=== PATIENT | male | born 1955 | race Caucasian/White ===

== ENCOUNTER → 2017-02-13 | Outpatient (CLI) | payer BC ==
[~2017-02-13] MED LIST: LISI-461 PO; LRT5 PO
[2017-02-13 12:26] LABS: BASO % 0.4 %; BASO ABS # 0.03 K/uL (0-0.2); COMPLETE YES; EOS % 2.1 %; HEMATOCRIT 40.4 % (42-52); IG% 0.1 %; LYMPH % 38.5 %; LYMPH ABS # 2.61 K/uL (1.2-3.4); MEAN CORPUSCULAR HEMOGLOBIN 28.7 pg (25-34); MEAN CORPUSCULAR HGB CONC 34.7 g/dl (32-36); MEAN PLATELET VOLUME 9.8 fL (7.4-10.4); MONO % 5.2 %; NEUT % 53.7 %; PLATELET COUNT 266 K/uL (130-400); RED BLOOD COUNT 4.87 M/uL (4.7-6.1); WHITE BLOOD COUNT 6.78 K/uL (4.8-10.8)
[2017-02-13 14:08] LABS: ALT/SGPT 26 U/L (12-78); BLOOD UREA NITROGEN 16 mg/dl (7-18); BUN/CREATININE RATIO 13.5 (10-20); CARBON DIOXIDE 30 mmol/L (21-32); CHLORIDE 103 mmol/L (98-107); CHOLESTEROL 184 mg/dl (0-200); GLUCOSE 79 mg/dl (70-99); POTASSIUM 2.8 mmol/L (3.5-5.1); SODIUM 142 mmol/L (136-145)
[2017-02-13 14:13] LABS: ALB/GLOB RATIO 1.1 (0.9-2); ALKALINE PHOSPHATASE 57 U/L (45-117); AST/SGOT 18 U/L (15-37); CHOLESTEROL/HDL RATIO 4.5; HDL CHOLESTEROL 41 mg/dl; LDL CHOLESTEROL CALCULATED 122 mg/dl; TRIGLYCERIDES 103 mg/dl (0-150); VERY LOW DENSITY LIPOPROT CALC 21 mg/dl
[2017-02-13 14:17] LABS: CALCIUM 8.8 mg/dl (8.5-10.1)
== END | disposition home or self-care (01) ==
LOC: C.LAB1850 11:26
PROVIDERS: ATTEND Nurse Practitioner Family
DX: I10 Essential (primary) hypertension (principal); Z13.220 Encounter for screening for lipoid disorders

== ENCOUNTER → 2017-03-22 | Outpatient (CLI) | payer BC ==
--- NOTE | 2017-03-22 15:48 | DIAGNOSTIC IMAGING REPORT ---
L-SPINE MIN 4 VIEWS ROUTINE HISTORY: Pain M54.5 Lower back [id number] COMPARISON: None. FINDINGS: There is no fracture. Considerable degenerative disc changes throughout. Moderate reactive osteophytic change. No evidence for subluxation or compression. Mild scoliosis. 2 nonobstructing calcifications lower pole left kidney. IMPRESSION: Degenerative change. Scoliosis. No acute process. Lower pole renal calcifications on the left. The above report was generated using voice recognition software. It may contain grammatical, syntax or spelling errors. Electronically signed by: Aries Martínez M.D. 03/22/2017 3:47 PM Dictated Date/Time: 03/22/2017 3:46 PM
[2017-03-22 17:33] LABS: BLOOD UREA NITROGEN 18 mg/dl (7-18); BUN/CREATININE RATIO 16.3 (10-20); CALCIUM 9.1 mg/dl (8.5-10.1); CARBON DIOXIDE 31 mmol/L (21-32); CHLORIDE 105 mmol/L (98-107); GLUCOSE 81 mg/dl (70-99); MAGNESIUM 2.6 mg/dl (1.8-2.4); SODIUM 143 mmol/L (136-145)
== END | disposition home or self-care (01) ==
LOC: C.RADBC 14:45
PROVIDERS: ATTEND Nurse Practitioner Family
DX: E87.6 Hypokalemia (principal); Z11.59 Encounter for screening for other viral diseases; I10 Essential (primary) hypertension; M54.5 Low back pain; M41.9 Scoliosis, unspecified; N20.0 Calculus of kidney